=== PATIENT | female | born 1985 | race Caucasian/White ===

== ENCOUNTER 2020-11-02 15:56 | Emergency (ER) | payer BC, SELFPAY ==
[2020-11-02] VITALS (9 sets, daily range): BP systolic 127–151; BP diastolic 80–97; PULSE 92–109; RESP 18–20; TEMP 36.3–36.4; O2SAT 97–98; BMI 44.3
--- NOTE | 2020-11-02 16:31 | ED.VIS.GEN ---
History of Present Illness Chief Complaint: Shortness of Breath Informant: Patient Narrative: Patient is a 35-year-old female with a past medical history of diabetes who presents to the emergency department for cough, nausea, body aches and chills. Her symptoms have been present for the past week. She was getting nervous because every time she eats she gets nauseous and being a diabetic she was scared to drop her blood sugars. She has seen her PCP and has been prescribed Zofran ODT's, cough medicine. She states that this has not been helping. She has not been able to sleep lately due to her symptoms. She does feel short of breath. After coughing fits she does get chest wall pain. She did have diarrhea but was put on Lomotil and has not gone to the bathroom since. She denies any urinary symptoms. Past Medical History - Allergies and Home Meds Allergies/Adverse Reactions: Allergies No Known Allergies Allergy (Verified 11/02/20 15:59) Primary Care Physician: Mally Hernandez MD [Primary Care Provider] - 2 Days Prior records reviewed: Yes Past Medical History: - - Diabetes Smoking Status: Never smoker Review of Systems All systems negative except as indicated General: Reports: Chills, Malaise. Denies: Fever, Sweats Eyes: Denies: Visual changes - bilaterally, Diplopia ENT: Denies: Rhinorrhea, Sore throat Cardiovascular: Reports: Chest pain - Chest wall. Denies: Palpitations Respiratory: Reports: Dyspnea, Cough, Sputum Gastrointestinal: Reports: Nausea, Constipation. Denies: Abdominal pain, Vomiting, Diarrhea, Melena, Hematochezia Genitourinary: Denies: Dysuria, Hematuria, Frequency Musculoskeletal: Denies: Back pain, Extremity Pain Skin: Denies: Rash, Wounds Neurological: Denies: Headache, Weakness, Numbness Physical Exam Vital Signs/Narrative: Vital Signs Temp Pulse Resp BP Pulse Ox 11/02/20 15:56 97.4 F L 109 H 20 H 151/96 H 97 Inital Vital Signs reviewed: Yes General: Well nourished, Well developed, No Acute Distress Head: Normocephalic, Atraumatic Eyes: Perrl, EOMI ENT: No rhinorrhea Neck: Supple, Nontender Cardiovascular: Regular rhythm, No murmurs, Tachycardia Respiratory: No distress, CTA bilaterally, Chest nontender Abdomen: Soft, Nontender, Nondistended, Normal bowel sounds Back: Nontender, Normal Inspection Extremities: Nontender, No edema Skin: Normal color, No rash Neurological: Alert, Oriented x3, Cranial nerves II-XII grossly intact, Normal Strength, Normal Sensation Psychological: Normal affect, Normal Mood Diagnostic/Tx/Re-eval Chest X-Ray - ED: - - Single view portable x-ray interpreted by myself. Clear lung [place] bilaterally. No pleural effusions. Normal cardiac silhouette. Normal mediastinum. Agree with radiologist interpretation. - EKG Initial EKG Interpretation: - - Rate of 98 bpm and normal sinus rhythm. Normal intervals. Normal axis. No significant ST elevations or depressions. No T wave abnormalities. - Medical Decision Making Patient presents to the ED for multiple complaints including cough, shortness of breath, body aches and nausea. She had a negative coronavirus test yesterday. Upon arrival to the emerge department she is satting well on room air but is tachycardic. Will check basic lab work, EKG and chest x-ray. We will start IV fluids. Patient's work-up revealed her to be hyperglycemic but otherwise no significant acute abnormalities. Chest x-ray not show any evidence of consolidation. Her coronavirus test was negative yesterday. She likely has a viral syndrome causing her symptoms now. She was mildly tachycardic upon arrival but this resolved with IV fluids. She does have medications that was already previously prescribed by her PCP. I recommend that she continues to take these. We will discharge her home in stable condition at this time. Warning signs and symptoms which to return to the ED are reviewed. She understands and is agreeable to plan. Discharged home in stable condition. All questions answered. ED Disposition - Plan for ED Patient: Disposition: Home or Assisted Living Diagnosis: Cough, Nausea, Headache Instructions: ED Viral Syndrome (Adult), ED Vomiting (Adult) Referrals: Mally Hernandez MD [Primary Care Provider] - 2 Days
--- NOTE | 2020-11-02 16:35 | EKG12_ITS ---
Test Reason : Blood Pressure : / mmHG Vent. Rate : 098 BPM Atrial Rate : 098 BPM P-R Int : 132 ms QRS Dur : 088 ms QT Int : 356 ms P-R-T Axes : 041 -02 018 degrees QTc Int : 454 ms Normal sinus rhythm Possible Anterior infarct , age undetermined Abnormal ECG Confirmed by STEFANIE SMITH, DANAY ([id number]), movie editor BECKI PADGETT ([id number]) on 11/04/2020 7:58:46 AM Referred By: DAVID Confirmed By:DANAY WATTS MD
--- NOTE | 2020-11-02 17:00 | RAD_ITS ---
STUDY: X-RAY CHEST REASON FOR EXAM: Female, 35 years old. shortness of breath, cough TECHNIQUE: Single AP portable view of the chest. COMPARISON: 05/19/2013 FINDINGS: The lungs are clear and expanded. There is no demonstrated pleural abnormality. Normal size heart. Normal mediastinum and yazmin. Normal visualized pulmonary arteries. Normal visualized aortic arch and descending thoracic aorta. Normal visualized thoracic spine. Normal visualized ribs, clavicles, and shoulders. There is no demonstrated abnormality of the visualized soft tissue structures of the upper abdomen. RAD/Chest 1 View (Portable) IMPRESSION: Normal x-ray examination of the chest. Electronically Signed: Deshaun Gross MD at 17:11 EST Tel , Service support ,
[2020-11-02] MEDS: 0.9% Normal Saline 1,000 ML 1000 ML IV (17:22)
[2020-11-02 17:33] LABS: Absolute Lymphocyte Count 1.22 X10^3/uL (0.83-4.51); Absolute Neutrophil Count 8.6 X10^3/uL (2.0-7.7); Basophil# 0.03 X10^3/uL; Basophil% 0.3 % (0-1); Eosinophils% 0.9 % (0-5); Hematocrit 41.5 % (37-47); Hemoglobin 13.8 g/dL (12.0-15.0); Lymphocyte # 1.22 X10^3/ul (4.0); Lymphocyte % 11.3 % (19-41); Mean Corp Hgb Conc 33.3 g/dL (32-36); Mean Corpuscular Hgb 29.7 pg (27.0-32.0); Mean Corpuscular Volume 89.4 fL (81-99); Mean Platelet Vol. 10.9 fl (6.2-12.0); Monocyte# 0.78 X10^3/uL; Monocyte% 7.2 % (0-10); NRBC Flagged by Analyzer 0 % (0-5); Neutrophil # 8.61 X10^3/uL (2.7-7.7); Neutrophil % 79.9 % (47-70); Platelet Count 373 K/mm3 (150-450); RBC Distribution Width CV 12.3 % (11.6-14.6); RBC Distribution Width SD 40.3 fl (35.1-43.9); Red Blood Count 4.64 M/mm3 (4.2-5.4); White Blood Count 10.8 K/mm3 (4.4-11.0)
[2020-11-02 17:55] LABS: BUN 12 mg/dL (7-18); BUN/Creat Ratio 15.7 RATIO (10-20); Calcium,Total 9.1 mg/dL (8.5-10.1); Chloride 107 mmol/L (98-107); Creatinine, Serum 0.76 mg/dL (0.55-1.02); EST Glomerular Filtration Rate 91 mL/min (>60); Est Glom Filt Rate - Afr Amer 111 mL/min (>60); Estimated Creatinine Clearance 107.97 ml/min; Glucose 258 mg/dL (74-106); Magnesium 1.9 mg/dL (1.6-2.6); Potassium 4.3 mmol/L (3.5-5.1); Sodium Level 138 mmol/L (136-145)
[2020-11-02 17:56] LABS: Mucous, Urine 0 SEEN /hpf (<or=2+); Red Blood Cells-Urine 0 SEEN /hpf (0-5)
[2020-11-02 17:56] LABS: Anion Gap 9 (5-15)
[2020-11-02 17:59] LABS: Color, Urine Yellow (Yellow); Glucose, Dipstick Normal (Normal); Ketone-Dipstick 15 mg/dl (Negative); Leukocyte Esterase-Dipstick Negative /ul (Negative); Nitrite-Dipstick Negative (Negative); Occult Blood-Urine Negative /ul (Negative); Protein-Dipstick 15 mg/dl (Negative); Specific Gravity, Urine 1.015 (1.002-1.030); Urine Bilirubin Dipstick Negative (Negative); Urine Clarity Clear (Clear); Urine Urobilinogen Normal (Normal)
[2020-11-02 18:05] LABS: Bacteria RARE /hpf (None Seen); Internal QC Validated? YES +Cl - CLEAR BKGD; Pregnancy, Urine Negative Negative; Squamous Epithelial Cells - UA 0-5 SEEN /hpf (5-10); White Blood Cells 0-5 SEEN /hpf (0-5)
[2020-11-02] MEDS: Ketorolac 15 MG/ML Vial IV (18:19)
== END 2020-11-02 19:13 | disposition home or self-care (01) ==
PROVIDERS: Emergency Provider Emergency Medicine; PCP Internal Medicine
DX: R05 Cough (principal); R11.0 Nausea; R51.9 Headache, unspecified; E11.9 Type 2 diabetes mellitus without complications; R19.7 Diarrhea, unspecified; R07.89 Other chest pain; R00.0 Tachycardia, unspecified; R68.83 Chills (without fever); Z96.41 Presence of insulin pump (external) (internal)
CPT/HCPCS: 71045; 80048; 81001; 81025; 83735; 84484; 85025; 93005; 96361; 96374; 99284; A4216

== ENCOUNTER 2021-10-06 09:55 | Emergency (ER) | payer BC, SELFPAY ==
[2021-10-06 09:56] VITALS: BP 167/93; PULSE 102; RESP 15; TEMP 36.5; O2SAT 96; BMI 48.2
--- NOTE | 2021-10-06 10:10 | EKG12_ITS ---
Test Reason : CP Blood Pressure : / mmHG Vent. Rate : 094 BPM Atrial Rate : 094 BPM P-R Int : 130 ms QRS Dur : 088 ms QT Int : 344 ms P-R-T Axes : 028 -11 010 degrees QTc Int : 430 ms Normal sinus rhythm Anterolateral infarct , age undetermined, cannot be excluded Abnormal ECG Confirmed by STEFANIE SMITH, DANAY ([id number]), art editor GRACIELA WILBURN ([id number]) on 10/11/2021 10:09:16 AM Referred By: MITESH Confirmed By:DANAY WATTS MD
--- NOTE | 2021-10-06 10:11 | EDS_ITS ---
HPI History of Present Illness Chief Complaint: Chest Pain Informant: patient Narrative Narrative: 35-year-old female presenting to the emergency department with concerns of chest pain. Patient states that on family's tested positive for Covid except for her. She began to have symptoms last Monday (this would be day 9). She states that she started off with cough fatigue fever. Monday she had a Covid tested in urgent care that was negative. Her father is now in the ICU and her mother is also hospitalized. She notes that she developed a tightness in her mid sternum that when she coughs seems to get worse and feels that there is mucus but she cannot get anything out. She is an insulin- dependent diabetic. Patient notes her chest is a little sore to the touch but does not reproduce the tightness. She states she called her doctor's office and was referred to emergency. She notes that she is extremely stressed out regarding her parents illness. [facility] Medical History (Updated 10/06/21 @ 12:[address] Gorge Rendon DO) Hypothyroidism Type I diabetes mellitus Home Medications Novolog Insulin Pump See Protocol SUBCUT CONT 08/04/13 [History Last Taken Unknown] levothyroxine 100 mcg PO DAILY 08/04/13 [History Last Taken 08/25/15 05:00] melatonin 3 mg PO QHS 03/06/15 [History Last Taken Unknown] albuterol sulfate [Ventolin HFA] 2 puff INHALATION Q4H PRN PRN #1 inhaler 10/06/21 [Rx Last Taken Unknown] trazodone 100 mg PO QHS PRN #5 tab 10/06/21 [Rx Last Taken Unknown] Allergy/AdvReac Type Severity Reaction Status Date / Time No Known Allergies Allergy Verified 10/06/21 09:59 Social History (Updated 10/06/21 @ 10:[address] Gorge Rendon DO) Smoking Status: Never smoker substance use type: does not use ROS ROS ED Constitutional Constitutional ED: Reports chills and fever(s); Denies weight loss Eyes Eyes: Denies change in vision or diplopia ENT ENT ED: Reports rhinorrhea, sore throat and other; Denies ear pain Cardiovascular Cardiovascular: Reports chest pain; Denies orthopnea, palpitations or racing heartbeat Respiratory/Chest Respiratory/Chest: Reports cough and dyspnea; Denies orthopnea Gastrointestinal Gastrointestinal: Reports nausea; Denies abdominal pain, diarrhea or vomiting Genitourinary Genitourinary ED: Denies dysuria, hematuria or urinary frequency Musculoskeletal Musculoskeletal: Reports myalgias; Denies arthralgias Integumentary Denies abscess or rash Neurologic Neurologic: Reports headache(s); Denies weakness Psychiatric Psychiatric: Denies anxiety, depression, suicidal ideation or suicidal thoughts Endocrine Endocrinology: Denies polydipsia, polyphagia or polyuria Allergic/Immunologic Allergic/Immunologic ED: Denies mouth swelling, tongue swelling or urticaria EXAM Physical Exam Const Vital Signs: 10/06/21 09:56 10/06/21 10:10 10/06/21 11:37 Temperature 97.7 F L Temperature Source Temporal Pulse Rate 102 H 98 Respiratory Rate 15 22 H Respiratory Effort Short of Breath Blood Pressure 167/93 H 139/72 H Blood Pressure Mean 117 94 Pulse Ox 96 97 Oxygen Delivery Method Room Air Room Air 10/06/21 12:24 Temperature Temperature Source Pulse Rate 93 Respiratory Rate 22 H Respiratory Effort Blood Pressure 143/76 H Blood Pressure Mean 98 Pulse Ox 97 Oxygen Delivery Method Positive well nourished, well developed and obese General Appearance ED: well developed Nutritional Appearance: obese HEENT Reports normocephalic, head/scalp atraumatic, TM's clear and moist mucous membranes Negative for trauma Tympanic Membrane ED: Yes TM's clear Eyes PERRL and EOMs intact bilaterally Neck no lymphadenopathy, supple and no JVD Resp normal respiratory effort and clear to auscultation bilaterally Cardio regular rate, regular rhythm and no murmurs GI normal to inspection, nondistended, normoactive bowel sounds and non-tender Palpation: soft Back/Spine no CVA tenderness and normal ROM Extremity normal to inspection General Extremety ED: Negative for edema General Extremity: Negative for edema Neuro oriented x3 and CN's II-XII intact bilaterally Sensorium / Orientation: alert Motor Exam: strength 5/5 throughout Psych mental status grossly normal Mood & Affect: Negative for depressed or tearful Skin no rashes or lesions noted and no wounds MDM MDM MDM Narrative Medical decision making narrative: Rapid Covid is negative. White count of 7.4. CMP with a glucose of 280 alk phos of 118. My interpretation of the chest x- ray is no acute process. D-dimer was elevated so therefore a CTA of the chest was obtained and this is negative. This point and the patient most likely has a viral syndrome. She has a significant stress of insomnia right now. I can write for a little bit of trazodone. I will also write for some albuterol MDI to see if this helps her breathing. Lab Data Attestation: I reviewed the patient's lab results. Labs: Laboratory Results - last 24 hr 10/06/21 10/06/21 10/06/21 10:20 10:20 10:20 WBC 7.4 RBC 4.53 Hgb 13.7 Hct 41.1 MCV 90.7 MCH 30.2 MCHC 33.3 RDW Std Deviation 40.8 RDW Coeff of Bill 12.3 Plt Count 341 MPV 10.5 Immature Gran % (Auto) 0.400 Neut % (Auto) 71.3 H Lymph % (Auto) 18.8 L [place] % (Auto) 7.4 Eos % (Auto) 1.6 Baso % (Auto) 0.5 Absolute Neuts (auto) 5.3 Absolute Lymphs (auto) 1.39 Nucleated RBC % 0 D-Dimer Quant (PE/DVT) 1.14 H* Sodium 138 Potassium 4.3 Chloride 109 H Carbon Dioxide 21.0 Anion Gap 8 BUN 11 Creatinine 0.71 Estim Creat Clear Calc 115.58 Est GFR (MDRD) Af Amer 121 Est GFR (MDRD) Non-Af 100 BUN/Creatinine Ratio 15.6 Glucose 280 H Calcium 8.6 Total Bilirubin 0.60 AST 4 L ALT 16 Alkaline Phosphatase 118 H Troponin I High Sens 3 Total Protein 7.9 Albumin 3.4 Globulin 4.5 H Albumin/Globulin Ratio 0.8 L Radiography Diagnostic Testing: Clinical Impression(s) from Imaging Studies Chest X-Ray 10/06/21 10:44 IMPRESSION: Normal x-ray examination of the chest. Electronically Signed: Syed Hazel MD at 10:55 EST , Service support , Chest CTA 10/06/21 11:10 IMPRESSION: Normal CTA chest examination, without a demonstrated pulmonary embolism or arterial dissection. Electronically Signed: Syed Hazel MD at 12:16 EST , Service support , EKG Initial EKG: Attestation: I personally reviewed and interpreted this EKG as follows: Comments: Normal sinus rhythm with a ventricular rate of 94 bpm. No ectopy noted Discharge Plan Triage Chief Complaint: Chest Pain ED Provider: Gorge Rendon Dx/Rx/DC Orders Clinical Impression: Acute viral syndrome, Acute dyspnea, Insomnia Instructions: ED Viral Syndrome (Adult) Prescriptions: New albuterol sulfate [Ventolin HFA] 1 INHALER inhaler 2 puff inhalation Q4H PRN PRN (Reason: Wheezing) Qty: 1 RF: 0 trazodone 100 mg tablet 100 mg PO QHS PRN (Reason: insomnia) Qty: 5 RF: 0 No Action Novolog Insulin Pump Pump See Protocol units subcut CONT RF: 0 levothyroxine 100 MCG tablet 100 mcg PO DAILY RF: 0 melatonin 3 MG tablet 3 mg PO QHS RF: 0 Primary Care Provider: Mally Hernandez Referrals: Mally Hernandez MD [Primary Care Provider] - 1 Week if not improving Disposition Disposition: Home, Self Care
[2021-10-06 10:30] LABS: Absolute Lymphocyte Count 1.39 X10^3/uL (0.83-4.51); Absolute Neutrophil Count 5.3 X10^3/uL (2.0-7.7); Basophil# 0.04 X10^3/uL; Basophil% 0.5 % (0-1); Eosinophil# 0.12 X10^3/uL; Eosinophils% 1.6 % (0-5); Hematocrit 41.1 % (37-47); Hemoglobin 13.7 g/dL (12.0-15.0); Lymphocyte # 1.39 X10^3/ul (0.83-4.51); Lymphocyte % 18.8 % (19-41); Mean Corp Hgb Conc 33.3 g/dL (32-36); Mean Corpuscular Hgb 30.2 pg (27.0-32.0); Mean Corpuscular Volume 90.7 fL (81-99); Mean Platelet Vol. 10.5 fl (6.2-12.0); Monocyte# 0.55 X10^3/uL; Monocyte% 7.4 % (0-10); NRBC Flagged by Analyzer 0 % (0-5); Neutrophil # 5.27 X10^3/uL (2.7-7.7); Neutrophil % 71.3 % (47-70); Platelet Count 341 K/mm3 (150-450); RBC Distribution Width CV 12.3 % (11.6-14.6); RBC Distribution Width SD 40.8 fl (35.1-43.9); Red Blood Count 4.53 M/mm3 (4.2-5.4); White Blood Count 7.4 K/mm3 (4.4-11.0)
--- NOTE | 2021-10-06 10:44 | RAD_ITS ---
STUDY: X-RAY CHEST REASON FOR EXAM: Female, 35 years old. CHEST PAIN TECHNIQUE: Single AP portable view of the chest. COMPARISON: Comparison is made with prior study dated 10/28/2020. FINDINGS: EKG electrodes are seen. The lungs are clear and expanded. There is no demonstrated pleural abnormality. Normal size heart. Normal mediastinum and yazmin. Normal visualized pulmonary arteries. Normal visualized aortic arch and descending thoracic aorta. Normal visualized thoracic spine. Normal visualized ribs, clavicles, and shoulders. There is no demonstrated abnormality of the visualized soft tissue structures of the upper abdomen. RAD/Chest 1 View (Portable) IMPRESSION: Normal x-ray examination of the chest. Electronically Signed: Syed Hazel MD at 10:55 EST , Service support ,
[2021-10-06 10:48] LABS: D-Dimer Quantitative (DVT/PE) 1.14 FEU/ug/m (0.27-0.49)
[2021-10-06 10:49] LABS: ALB/GLOB Ratio 0.8 RATIO (0.9-2.4); AST(SGOT) 4 U/L (15-37); Alanine Aminotransfer ALT/SGPT 16 U/L (13-56); Albumin, Serum 3.4 g/dL (3.2-5.0); Alkaline Phosphatase 118 U/L (45-117); Anion Gap 8 (5-15); BUN 11 mg/dL (7-18); BUN/Creat Ratio 15.6 RATIO (10-20); Calcium,Total 8.6 mg/dL (8.5-10.1); Chloride 109 mmol/L (98-107); Creatinine, Serum 0.71 mg/dL (0.55-1.02); EST Glomerular Filtration Rate 100 mL/min (>60); Est Glom Filt Rate - Afr Amer 121 mL/min (>60); Estimated Creatinine Clearance 115.58 ml/min; Globulin 4.5 g/dL (2.2-4.2); Glucose 280 mg/dL (74-106); Potassium 4.3 mmol/L (3.5-5.1); Protein, Total 7.9 g/dL (6.4-8.2); Sodium Level 138 mmol/L (136-145); Troponin-I HS 3 pg/mL (3.0-54.0)
--- NOTE | 2021-10-06 11:10 | CT_ITS ---
STUDY: CTA CHEST REASON FOR EXAM: Female, 35 years old. Pulmonary embolism, elevated d dimer. One week history of cough and chest congestion. RADIATION DOSAGE (If Supplied By Facility): CTDIvol = ( 18.59 ) mGy, DLP = ( 1164.84 ) mGycm TECHNIQUE: The examination was performed with the intravenous administration of IV 100mL [id number]-[id number]. Post-processing of the angiographic images was performed, with multiplanar reformation and 3D reconstruction. Individualized dose optimization techniques were used for this CT. COMPARISON: Comparison is made with prior chest radiograph done earlier in the day. FINDINGS: Normal enhancement of the main pulmonary artery and right and left pulmonary arteries. Normal enhancement of the bilateral peripheral pulmonary arteries. There is no demonstrated pulmonary embolism. Normal thoracic aorta and visualized great vessels. There is no demonstrated aortic dissection. Normal heart and pericardium. Normal mediastinum. Normal hilar regions. Normal visualized trachea and bronchi. The lungs are well expanded. Normal pulmonary parenchyma. Normal pleura. Normal chest wall structures. Normal osseous structures. Normal visualized upper abdomen. CT/CTA Chest W/WO Contrast IMPRESSION: Normal CTA chest examination, without a demonstrated pulmonary embolism or arterial dissection. Electronically Signed: Syed Hazel MD at 12:16 EST , Service support ,
[2021-10-06 11:37] VITALS: BP 139/72; PULSE 98; RESP 22; O2SAT 97
[2021-10-06 12:24] VITALS: BP 143/76; PULSE 93; RESP 22; O2SAT 97
[2021-10-06 12:53] VITALS: BP 127/61; PULSE 79; RESP 18; O2SAT 98
== END 2021-10-06 12:54 | disposition home or self-care (01) ==
PROVIDERS: Emergency Provider Emergency Medicine; PCP Internal Medicine
DX: B34.9 Viral infection, unspecified (principal); R06.00 Dyspnea, unspecified; Z20.822 Contact with and (suspected) exposure to COVID-19; E11.9 Type 2 diabetes mellitus without complications; E03.9 Hypothyroidism, unspecified; E66.9 Obesity, unspecified; Z79.4 Long term (current) use of insulin; Z79.890 Hormone replacement therapy; Z79.899 Other long term (current) drug therapy
CPT/HCPCS: 71045; 71275; 80053; 84484; 85025; 85379; 87426; 93005; 99284; Q9967; A4216